=== PATIENT | male | born 1960 | race Caucasian/White ===

== ENCOUNTER 2023-09-30 11:00 | Inpatient (IN) | payer BC ==
[2023-09-30] MEDS ORDERED: Diazepam 5 MG TAB ONE (13:12)
[2023-09-30] MEDS ORDERED: Ketorolac Tromethamine 30 MG (1 mL) VIAL ONE (17:52)
[2023-09-30] MEDS ORDERED: Morphine 4 MG/ML VIAL ONE (17:52)
[2023-09-30] MEDS ORDERED: Dextrose 5% in Water 1,000 ML IV PRN (18:19)
[2023-09-30] MEDS ORDERED: Acetaminophen 650 MG Suppository PR PRN (18:19)
[2023-09-30] MEDS ORDERED: Acetaminophen 325 MG TAB PO PRN (18:19)
[2023-09-30] MEDS ORDERED: Dextrose 50% Abboject 50 ML SYRINGE SLOW IVP PRN (18:19)
[2023-09-30] MEDS ORDERED: Glucagon 1 MG/ML KIT IM PRN (18:19)
[2023-09-30] MEDS ORDERED: Albuterol 200 PUFF (6.7GM INHALER) INH PRN (18:24)
[2023-09-30] MEDS ORDERED: predniSONE 20 MG TAB PO SCH (18:30)
[2023-09-30] MEDS ORDERED: Mometasone 100 MCG HFA INHALER (RT USE) INH PRN (18:35)
[2023-09-30] MEDS: Senokot S 8.6-50 MG TAB PO SCH (20:06)
[2023-09-30 23:34] VITALS: BMI 38.4
[2023-10-01 04:50] LABS: #Basophils 0.1 thou/uL (0.0-0.2); #Eosinphils 0.1 thou/uL (0.0-0.7); #Monocytes 0.5 thou/uL (0.11-0.59); #Neutrophils 3.4 thou/uL (1.40-6.50); %Basophils 0.9 % (0.0-1.0); %Eosinophils 2.1 % (0.0-10.0); %Lymphocytes 30.1 % (21.0-51.0); %Monocytes 8.5 % (0.0-10.0); %Neutrophils 58.1 % (42.0-75.0); Hematocrit 41.9 % (42.0-52.0); Hemoglobin 13.7 g/dL (14.0-18.0); Mean Corpuscular HGB CONC 32.7 g/dL (32.0-36.0); Mean Corpuscular Hemoglobin 30.7 pg (27.0-31.0); Mean Corpuscular Volume 93.9 fl (78.0-98.0); Mean Platelet Volume 10.1 fL (7.4-10.4); Platelet Count 172 10x3/uL (130-400); RBC Distribution Width 12.6 % (11.5-14.5); Red Blood Cell (RBC) Count 4.46 mill/uL (4.70-6.10); White Blood Cell (WBC) Count 5.8 10x3/uL (4.8-10.8)
[2023-10-01 05:17] LABS: ALT (SGPT) 24 U/L (8-55); AST (SGOT) 20 U/L (5-34); Alkaline Phosphatase 81 U/L (40-110); Anion Gap 9 mmol/L (10-20); BUN (Urea Nitrogen) 20 mg/dL (8.4-25.7); Bilirubin, Total 0.6 mg/dL (0.2-1.2); Calc. Creatinine Clearance 107 mL/min (70-130); Calcium 8.8 mg/dL (7.8-10.44); Carbon Dioxide 27 mmol/L (23-31); Chloride 103 mmol/L (98-107); Estimated GFR 66; Globulin 2.2 g/dL (2.4-3.5); Glucose 154 mg/dL (80-115); Potassium 4.3 mmol/L (3.5-5.1); Protein, Total 6.2 g/dL (5.8-8.1); Sodium 135 mmol/L (136-145)
[2023-10-01] MEDS: HYDROcodone/Acetaminophen 5/325 mg Tablet PO PRN ×3 (05:17→18:57)
[2023-10-01] MEDS: predniSONE 20 MG TAB PO SCH (10:35)
[2023-10-01] MEDS: Losartan 25 MG TAB PO SCH (10:35)
[2023-10-01] MEDS: Enoxaparin 40 MG (0.4 mL) SYRINGE SC SCH (10:35)
[2023-10-01] MEDS: Amlodipine 10 MG TAB PO SCH (10:35)
[2023-10-01] MEDS: Montelukast Sodium 10 mg Tablet PO SCH (10:36)
[2023-10-01] MEDS: Senokot S 8.6-50 MG TAB PO SCH ×2 (10:36→20:41)
[2023-10-01] MEDS ORDERED: Lorazepam 2 MG/ML VIAL SLOW IVP SCH (11:15)
[2023-10-01] MEDS ORDERED: metFORMIN 500 MG TAB PO SCH (17:30)
[2023-10-01] MEDS: HumaLOG 300 UNITS/3 ML VIAL SC PRN ×2 (18:51→20:46)
[2023-10-01] MEDS ORDERED: Melatonin 3 MG TAB PO PRN (20:15)
[2023-10-02] MEDS: HumaLOG 300 UNITS/3 ML VIAL SC PRN ×4 (05:40→17:24)
[2023-10-02] MEDS: metFORMIN 500 MG TAB PO SCH ×2 (08:12→17:24)
[2023-10-02] MEDS: Montelukast Sodium 10 mg Tablet PO SCH (08:12)
[2023-10-02] MEDS: predniSONE 20 MG TAB PO SCH (08:12)
[2023-10-02] MEDS: Enoxaparin 40 MG (0.4 mL) SYRINGE SC SCH (08:13)
[2023-10-02] MEDS: Amlodipine 10 MG TAB PO SCH (08:13)
[2023-10-02] MEDS: Losartan 25 MG TAB PO SCH (08:13)
[2023-10-02] MEDS: Senokot S 8.6-50 MG TAB PO SCH (08:13)
[2023-10-02] MEDS ORDERED: Multivit, Therapeutic 1 TAB PO SCH (09:00)
[2023-10-02] MEDS ORDERED: Cholecalciferol 1,000 UNITS (25 MCG) TAB PO SCH (09:00)
[2023-10-02] MEDS ORDERED: Magnesium Oxide 400 MG TAB PO SCH (09:00)
[2023-10-02] MEDS ORDERED: Lorazepam 1 MG TAB PO SCH (09:45)
[2023-10-02] MEDS: HYDROcodone/Acetaminophen 5/325 mg Tablet PO PRN ×2 (13:09→19:03)
[2023-10-02 15:47] VITALS: BP 135/76; TEMP 97.9
== END 2023-10-02 19:12 | disposition home or self-care (01) | DRG 552 ==
LOC: ERS 11:00 → SUATTDRO 11:00 → SURG B 18:24
PROVIDERS: ADMIT Family Medicine; ATTEND Hospitalist
DX: M48.061 Spinal stenosis, lumbar region without neurogenic claudication (principal); M54.40 Lumbago with sciatica, unspecified side; W18.30XA Fall on same level, unspecified, initial encounter; Z79.899 Other long term (current) drug therapy; Z79.84 Long term (current) use of oral hypoglycemic drugs; E11.9 Type 2 diabetes mellitus without complications; I10 Essential (primary) hypertension; G89.29 Other chronic pain; M54.9 Dorsalgia, unspecified; F17.210 Nicotine dependence, cigarettes, uncomplicated; Z98.890 Other specified postprocedural states; M47.816 Spondylosis without myelopathy or radiculopathy, lumbar region
CPT/HCPCS: 36415; 36416; 72100; 72148; 72170; 72192; 80053; 85025; 96374; 96375; J1650; J1815; J1885; J2270; J7512